=== PATIENT | female | born 1935 | race African-American/Black ===

== ENCOUNTER 2018-02-01 09:47 | Emergency (ER) | payer MEDICARE, BC ==
[~2018-02-01] VITALS: Ht 162.6 cm; Wt 92.0 kg
[~2018-02-01 09:47] MED LIST: DOXA2TAB2 PO; HYDR12.529 PO; LETR2.5T6 PO; NEBI5TAB3 PO; NISO17TA3 PO; WARF1TAB85 PO
[2018-02-01] MEDS ORDERED: ACETAMINOPHEN 325MG TABLET PO ONE (10:45)
[2018-02-01 12:00] VITALS: BP 140/80
== END 2018-02-01 12:16 | disposition home or self-care (01) ==
LOC: ER 10:51
DX: S00.83XA Contusion of other part of head, initial encounter (principal); S70.01XA Contusion of right hip, initial encounter; I25.10 Atherosclerotic heart disease of native coronary artery without angina pectoris; M85.80 Other specified disorders of bone density and structure, unspecified site; I10 Essential (primary) hypertension; Z98.890 Other specified postprocedural states; Z96.659 Presence of unspecified artificial knee joint; Z88.0 Allergy status to penicillin; Z79.01 Long term (current) use of anticoagulants; Z88.8 Allergy status to other drugs, medicaments and biological substances; W01.0XXA Fall on same level from slipping, tripping and stumbling without subsequent striking against object, initial encounter; Y93.89 Activity, other specified; Y92.018 Other place in single-family (private) house as the place of occurrence of the external cause
CPT/HCPCS: 70450; 72170; 99284

== ENCOUNTER 2018-03-01 18:22 | Emergency (ER) | payer MEDICARE, BC ==
[~2018-03-01] VITALS: Ht 162.6 cm; Wt 65.0 kg
[2018-03-01 19:24] LABS: BASOPHILS % 0.4 % (0.0-2.0); EOSINOPHILS % 0.8 % (0.0-5.0); HEMATOCRIT. 32.7 % (36.0-48.0); HEMOGLOBIN. 11.1 g/dL (12.0-16.0); LYMPHOCYTES % 14.5 % (20.0-50.0); MEAN CORPUSCULAR HEMOGLOBIN 29.1 pg (28.0-32.0); MEAN CORPUSCULAR VOLUME 85.7 fL (81.0-99.0); MEAN PLATELET VOLUME 8.5 fl (7.4-10.4); MONOCYTES % 13.7 % (2.0-8.0); NEUTROPHILS % 70.6 % (40.0-76.0); PLATELET 198 x1000/uL (130-400); RED BLOOD CELL COUNT 3.81 mill/uL (4.2-5.4); RED CELL DISTRIBUTION WIDTH 15.1 % (11.6-14.6)
[2018-03-01 19:29] LABS: CHLORIDE 107 mEq/L (98-107)
[2018-03-01 19:30] LABS: INR 1.6; PROTHROMBIN TIME 16.3 sec (9.4-11.6)
[2018-03-01 21:00] VITALS: BP 123/55
[2018-03-01] MEDS ORDERED: KETOROLAC 60MG/2ML VIAL IM ONE (21:15)
== END 2018-03-01 22:25 | disposition home or self-care (01) ==
LOC: ER 18:37
DX: R53.1 Weakness (principal); M16.0 Bilateral primary osteoarthritis of hip; I25.10 Atherosclerotic heart disease of native coronary artery without angina pectoris; I10 Essential (primary) hypertension; Z79.01 Long term (current) use of anticoagulants; Z88.0 Allergy status to penicillin; Z88.8 Allergy status to other drugs, medicaments and biological substances; Z91.040 Latex allergy status; Z96.659 Presence of unspecified artificial knee joint
CPT/HCPCS: 36415; 73521; 80053; 85025; 85610; 96372; 99285; J1885

== ENCOUNTER 2025-05-09 22:00 | Inpatient (IN) | payer MEDICARE, MEDICAID ==
[~2025-05-09] VITALS: Ht 170.2 cm; Wt 88.5 kg
[2025-05-09 22:00] VITALS: BP_SYST 120; BP_SYST 125; BP_DIAS 47; BP_DIAS 53; PULSE 51; RESP 18; RESP 20; TEMP 36.7; O2SAT 98
[~2025-05-09 22:00] MED LIST changes: +CADE40GE2 TP; -DOXA2TAB2 PO; +EZET10TA81 MT; +GENT30OI2 TP; -HYDR12.529 PO; +HYDR25TA MT; +HYDROCHLOROTHIAZIDE PO; -LETR2.5T6 PO; +MULT-1116 MT; -NEBI5TAB3 PO; +NIFE-33 MT; -NISO17TA3 PO; +TRIAMTERENE PO; -WARF1TAB85 PO; +[UNRECOGNIZED DRUG - CODE] TP; +[UNRECOGNIZED DRUG - CODE] TP; +triamterene
[2025-05-09] MEDS ORDERED: DEXTROSE 50% WATER 50ML SYRINGE IV PRN (22:45)
[2025-05-09] MEDS ORDERED: GUAIFENESIN 200MG/10ML SUGAR FREE UDC PO PRN (22:45)
[2025-05-09] MEDS ORDERED: ONDANSETRON HCL 4MG/2ML INJ IV PRN (22:45)
[2025-05-09] MEDS ORDERED: MAGNESIUM/ALUMINUM HYDROXIDE/SIMETHICONE 30ML UDC PO PRN (22:45)
[2025-05-09] MEDS ORDERED: ATROPINE SULFATE 1MG/10ML SYR IV PRN (23:00)
[2025-05-09] MEDS ORDERED: HYDRALAZINE 10 MG in SODIUM CHLORIDE 0.9% 50 ML IV PRN (23:00)
[2025-05-10] MEDS: PHENYTOIN SODIUM EXTENDED 100MG CAPSULE PO SCH (06:33)
[2025-05-10 08:00] VITALS: BP 142/58; PULSE 46; RESP 18; TEMP 36.1; O2SAT 98
[2025-05-10] MEDS: LEVETIRACETAM 500MG TABLET PO SCH (09:46)
[2025-05-10] MEDS: MAGNESIUM OXIDE 400MG TABLET PO SCH (09:46)
[2025-05-10] MEDS: FAMOTIDINE 20MG TABLET PO SCH (21:01)
[2025-05-10 21:53] LABS: BASOPHILS % 0.5 % (0.0-2.0); EOSINOPHILS % 1.3 % (0.0-5.0); HEMATOCRIT. 38.3 % (36.0-48.0); HEMOGLOBIN. 12.5 g/dL (12.0-16.0); LYMPHOCYTES % 17.0 % (20.0-50.0); MEAN PLATELET VOLUME 8.0 fl (7.4-10.4); MONOCYTES % 9.9 % (2.0-8.0); NEUTROPHILS % 71.3 % (40.0-76.0); PLATELET 187 x1000/uL (130-400); RED BLOOD CELL COUNT 4.35 mill/uL (4.2-5.4); RED CELL DISTRIBUTION WIDTH 15.4 % (11.6-14.6)
[2025-05-10 22:22] LABS: CREATININE 0.9 mg/dL (0.6-1.0); UREA NITROGEN BLOOD 15 mg/dL (9-23)
[2025-05-10 22:24] LABS: ASPARTATE AMINOTRANSFERASE 37 IU/L (<34)
[2025-05-10 22:25] LABS: BILIRUBIN TOTAL 0.4 mg/dL (0.1-1.0); PROTEIN TOTAL 6.5 g/dL (6.0-8.3)
[2025-05-11 12:00] VITALS: BP 130/53; PULSE 52; RESP 19; TEMP 36.2; O2SAT 98
[2025-05-12 05:47] LABS: CREATININE 0.7 mg/dL (0.6-1.0); UREA NITROGEN BLOOD 16 mg/dL (9-23)
[2025-05-12 05:49] LABS: ASPARTATE AMINOTRANSFERASE 35 IU/L (<34)
[2025-05-12 05:50] LABS: BILIRUBIN TOTAL 0.4 mg/dL (0.1-1.0); PROTEIN TOTAL 6.2 g/dL (6.0-8.3)
[2025-05-12 05:51] LABS: BASOPHILS % 0.5 % (0.0-2.0); EOSINOPHILS % 1.3 % (0.0-5.0); HEMATOCRIT. 36.1 % (36.0-48.0); HEMOGLOBIN. 11.9 g/dL (12.0-16.0); LYMPHOCYTES % 18.0 % (20.0-50.0); MEAN PLATELET VOLUME 7.8 fl (7.4-10.4); MONOCYTES % 11.0 % (2.0-8.0); NEUTROPHILS % 69.2 % (40.0-76.0); PLATELET 198 x1000/uL (130-400); RED BLOOD CELL COUNT 4.20 mill/uL (4.2-5.4); RED CELL DISTRIBUTION WIDTH 15.4 % (11.6-14.6)
[2025-05-12 05:55] LABS: FOLIC ACID (FOLATE) SERUM 11.53 ng/mL (>5.38); VITAMIN B12 SERUM 982 pg/mL (211-911)
[2025-05-12 08:00] VITALS: BP 120/54; PULSE 60; RESP 18; TEMP 35.9; O2SAT 98
[2025-05-13 08:00] VITALS: BP 140/62; PULSE 55; RESP 19; TEMP 36.7; O2SAT 99
[2025-05-13 08:17] LABS: CLARITY URINE CLEAR (CLEAR); COLOR URINE YELLOW (YELLOW); GLUCOSE URINE NEGATIVE (NEGATIVE); KETONES URINE NEGATIVE (NEGATIVE); LEUKOCYTE ESTERASE URINE NEGATIVE (NEGATIVE); NITRITE URINE NEGATIVE (NEGATIVE); OCCULT BLOOD URINE NEGATIVE (NEGATIVE); PH URINE 6.0 (4.5-8.0); PROTEIN URINE NEGATIVE (NEGATIVE); SPECIFIC GRAVITY URINE 1.014 (1.005-1.030); UROBILINOGEN URINE 0.2 E.U./dL (0.2-1.0)
[2025-05-13] MEDS: ASCORBIC ACID 500 MG TABLET PO SCH (08:20)
[2025-05-13] MEDS: FERROUS SULFATE 325MG TABLET PO SCH (08:20)
[2025-05-13 20:00] VITALS: BP 161/54; PULSE 61; RESP 18; TEMP 36.6; O2SAT 100
[2025-05-13] MEDS: CLONIDINE 0.1MG TABLET PO PRN (22:01)
[2025-05-13] MEDS ORDERED: HYDRALAZINE HCL 25MG TABLET PO SCH (22:15)
[2025-05-13] MEDS: HYDRALAZINE HCL 25MG TABLET PO SCH (22:45)
[2025-05-13 23:17] VITALS: BP 114/57; PULSE 70
[2025-05-14 08:00] VITALS: BP 137/70; PULSE 83; RESP 17; TEMP 36.7; O2SAT 98
[2025-05-14] MEDS ORDERED: HYDRALAZINE HCL 25MG TABLET PO SCH (09:00)
[2025-05-14 20:00] VITALS: BP 148/62; PULSE 69; RESP 19; TEMP 35.9; O2SAT 100
[2025-05-14] MEDS: DOCUSATE SODIUM 100MG CAPSULE PO PRN (21:00)
[2025-05-14] MEDS: TRIAMCINOLONE ACETONIDE 0.5% CREAM 15GM TOP SCH (21:33)
[2025-05-15 09:35] VITALS: BP 142/50; PULSE 57; RESP 18; TEMP 36.3; O2SAT 97
[2025-05-15 20:00] VITALS: BP 132/70; PULSE 62; RESP 18; TEMP 35.8; O2SAT 100
[2025-05-16 08:00] VITALS: BP 125/66; PULSE 96; RESP 20; TEMP 36.5; O2SAT 97
[2025-05-16] MEDS: ACETAMINOPHEN 325MG TABLET PO PRN (09:30)
[2025-05-16] MEDS: MAGNESIUM/ALUMINUM HYDROXIDE/SIMETHICONE 30ML UDC PO NR (16:01)
[2025-05-16] MEDS: PANTOPRAZOLE 40MG DR TABLET PO SCH (16:02)
[2025-05-16] MEDS: FAMOTIDINE 20MG TABLET PO NR (16:02)
[2025-05-16 18:47] LABS: TROPONIN I HIGH SENSITIVITY 10 ng/L (3.0-34)
[2025-05-16 20:00] VITALS: BP 135/49; PULSE 61; RESP 17; TEMP 36.4; O2SAT 96
[2025-05-17 08:00] VITALS: BP 131/67; PULSE 69; RESP 18; TEMP 36; O2SAT 98
[2025-05-17 09:01] LABS: UREA NITROGEN BLOOD 27 mg/dL (9-23)
[2025-05-17 09:03] LABS: PHOSPHORUS 4.5 mg/dL (2.5-4.9)
[2025-05-17 09:05] LABS: CREATININE 2.2 mg/dL (0.6-1.0)
[2025-05-17 09:10] LABS: BASOPHILS % 0.5 % (0.0-2.0); EOSINOPHILS % 0.5 % (0.0-5.0); HEMATOCRIT. 40.3 % (36.0-48.0); HEMOGLOBIN. 13.0 g/dL (12.0-16.0); LYMPHOCYTES % 13.6 % (20.0-50.0); MEAN PLATELET VOLUME 8.8 fl (7.4-10.4); MONOCYTES % 11.3 % (2.0-8.0); NEUTROPHILS % 74.1 % (40.0-76.0); PLATELET 105 x1000/uL (130-400); RED BLOOD CELL COUNT 4.53 mill/uL (4.2-5.4); RED CELL DISTRIBUTION WIDTH 16.1 % (11.6-14.6)
[2025-05-17] MEDS: SODIUM POLYSTYRENE SULFONATE 15 G/60 ML BOT PO SCH (09:45)
[2025-05-17] MEDS: SODIUM POLYSTYRENE SULFONATE 15 G/60 ML BOT PO NR (14:30)
[2025-05-17] MEDS ORDERED: SODIUM ZIRCONIUM CYCLOSILICATE 10GM/PACKET PO ONE (14:30)
[2025-05-17] MEDS: SODIUM CHLORIDE 0.9% 1,000 ML IV SCH (14:30)
[2025-05-17 15:21] LABS: CREATININE 2.4 mg/dL (0.6-1.0); UREA NITROGEN BLOOD 38.0 mg/dL (9-23)
[2025-05-17 20:00] VITALS: BP 129/74; PULSE 79; RESP 19; TEMP 36.9; O2SAT 100
[2025-05-17 20:49] LABS: CREATININE 2.2 mg/dL (0.6-1.0); UREA NITROGEN BLOOD 42.0 mg/dL (9-23)
[2025-05-17] MEDS: DOCUSATE SODIUM 100MG CAPSULE PO SCH (21:00)
[2025-05-17] MEDS: SENNOSIDES 8.6MG TABLET PO SCH (22:46)
[2025-05-18 06:55] LABS: BASOPHILS % 0.6 % (0.0-2.0); EOSINOPHILS % 0.3 % (0.0-5.0); HEMATOCRIT. 40.5 % (36.0-48.0); HEMOGLOBIN. 13.1 g/dL (12.0-16.0); LYMPHOCYTES % 15.2 % (20.0-50.0); MEAN PLATELET VOLUME 7.9 fl (7.4-10.4); MONOCYTES % 11.0 % (2.0-8.0); NEUTROPHILS % 72.9 % (40.0-76.0); PLATELET 102 x1000/uL (130-400); RED BLOOD CELL COUNT 4.59 mill/uL (4.2-5.4); RED CELL DISTRIBUTION WIDTH 16.6 % (11.6-14.6)
[2025-05-18 07:20] LABS: CREATININE 2.1 mg/dL (0.6-1.0); UREA NITROGEN BLOOD 43.0 mg/dL (9-23)
[2025-05-18 08:00] VITALS: BP 138/65; PULSE 79; RESP 17; TEMP 36.6; O2SAT 99
[2025-05-18] MEDS ORDERED: SODIUM POLYSTYRENE SULFONATE 15 G/60 ML BOT PO ONE (09:15)
[2025-05-18] MEDS: SODIUM ZIRCONIUM CYCLOSILICATE 10GM/PACKET PO SCH (09:15)
[2025-05-18] MEDS: LACTULOSE 20G/30ML UDC PO PRN (11:43)
[2025-05-18 20:00] VITALS: BP 143/68; PULSE 60; RESP 16; TEMP 36.4; O2SAT 97
[2025-05-19] MEDS: MINERAL OIL ENEMA 133ML PR SCH (05:07)
[2025-05-19 08:00] VITALS: BP 115/70; PULSE 76; RESP 18; TEMP 35.7; O2SAT 98
[2025-05-19 11:18] LABS: HEMATOCRIT. 33.4 % (36.0-48.0); HEMOGLOBIN. 10.9 g/dL (12.0-16.0); MEAN PLATELET VOLUME 8.0 fl (7.4-10.4); PLATELET 95 x1000/uL (130-400); RED BLOOD CELL COUNT 3.88 mill/uL (4.2-5.4); RED CELL DISTRIBUTION WIDTH 15.9 % (11.6-14.6)
[2025-05-19 11:36] LABS: CREATININE 1.3 mg/dL (0.6-1.0); UREA NITROGEN BLOOD 41.0 mg/dL (9-23)
[2025-05-19] MEDS: MULTIVITAMINS,THER W-MINERALS TABLET PO SCH (13:18)
[2025-05-19 20:00] VITALS: BP 153/52; PULSE 75; RESP 18; TEMP 37; O2SAT 95
[2025-05-19 20:25] LABS: EOSINOPHILS % MANUAL 2.0 % (0.0-5.0); LYMPHOCYTES % MANUAL 19.0 % (20.0-60.0); MONOCYTES % MANUAL 13.0 % (2.0-8.0); NEUTROPHILS % MANUAL 66.0 % (45.0-75.0); PLATELET ESTIMATE DECREASED
[2025-05-20 06:57] LABS: HEMATOCRIT. 31.4 % (36.0-48.0); HEMOGLOBIN. 10.6 g/dL (12.0-16.0); MEAN PLATELET VOLUME 8.2 fl (7.4-10.4); PLATELET 96 x1000/uL (130-400); RED BLOOD CELL COUNT 3.65 mill/uL (4.2-5.4); RED CELL DISTRIBUTION WIDTH 15.7 % (11.6-14.6)
[2025-05-20 07:01] LABS: CREATININE 1.0 mg/dL (0.6-1.0); UREA NITROGEN BLOOD 35 mg/dL (9-23)
[2025-05-20 08:00] VITALS: BP 129/80; PULSE 89; RESP 17; TEMP 36.7; O2SAT 98
[2025-05-20 13:06] LABS: BAND% 4.0 % (1.0-6.0); EOSINOPHILS % MANUAL 1.0 % (0.0-5.0); LYMPHOCYTES % MANUAL 25.0 % (20.0-60.0); MONOCYTES % MANUAL 14.0 % (2.0-8.0); NEUTROPHILS % MANUAL 56.0 % (45.0-75.0)
[2025-05-20 13:07] LABS: PLATELET ESTIMATE DECREASED
[2025-05-20 20:00] VITALS: BP 106/76; PULSE 80; RESP 19; TEMP 36.7; O2SAT 98
[2025-05-21 07:08] LABS: HEMATOCRIT. 32.0 % (36.0-48.0); HEMOGLOBIN. 10.6 g/dL (12.0-16.0); MEAN PLATELET VOLUME 7.9 fl (7.4-10.4); PLATELET 109 x1000/uL (130-400); RED BLOOD CELL COUNT 3.71 mill/uL (4.2-5.4); RED CELL DISTRIBUTION WIDTH 15.9 % (11.6-14.6)
[2025-05-21 07:24] LABS: CREATININE 0.8 mg/dL (0.6-1.0); UREA NITROGEN BLOOD 23 mg/dL (9-23)
[2025-05-21 07:56] VITALS: BP 138/82; PULSE 84; RESP 18; TEMP 36.6; O2SAT 99
[2025-05-21 16:56] LABS: EOSINOPHILS % MANUAL 3.0 % (0.0-5.0); LYMPHOCYTES % MANUAL 28.0 % (20.0-60.0); MONOCYTES % MANUAL 5.0 % (2.0-8.0); NEUTROPHILS % MANUAL 64.0 % (45.0-75.0); PLATELET ESTIMATE DECREASED
[2025-05-21 21:00] VITALS: BP 158/45; PULSE 57; RESP 20; TEMP 36.1; O2SAT 97
[2025-05-22 08:00] VITALS: BP 118/41; PULSE 59; RESP 18; TEMP 36.3; O2SAT 99
[2025-05-22 20:00] VITALS: BP 130/76; PULSE 86; RESP 20; TEMP 36.7; O2SAT 98
[2025-05-23 07:11] LABS: BASOPHILS % 1.0 % (0.0-2.0); EOSINOPHILS % 2.5 % (0.0-5.0); HEMATOCRIT. 33.3 % (36.0-48.0); HEMOGLOBIN. 10.9 g/dL (12.0-16.0); LYMPHOCYTES % 25.6 % (20.0-50.0); MEAN PLATELET VOLUME 7.8 fl (7.4-10.4); MONOCYTES % 14.8 % (2.0-8.0); NEUTROPHILS % 56.1 % (40.0-76.0); PLATELET 135 x1000/uL (130-400); RED BLOOD CELL COUNT 3.81 mill/uL (4.2-5.4); RED CELL DISTRIBUTION WIDTH 16.1 % (11.6-14.6)
[2025-05-23 08:00] VITALS: BP 137/60; PULSE 76; RESP 20; TEMP 36.1; O2SAT 100
[2025-05-23 08:07] LABS: CREATININE 0.7 mg/dL (0.6-1.0); UREA NITROGEN BLOOD 16 mg/dL (9-23)
[2025-05-23 20:00] VITALS: BP 125/56; PULSE 81; RESP 18; TEMP 36.3; O2SAT 99
[2025-05-24 08:00] VITALS: BP 110/42; PULSE 82; RESP 18; TEMP 35.8; O2SAT 97
[2025-05-24 21:00] VITALS: BP 140/59; PULSE 65; RESP 20; TEMP 36.5; O2SAT 100
[2025-05-25 08:00] VITALS: BP 139/54; PULSE 69; RESP 18; TEMP 36.8; O2SAT 99
[2025-05-25 20:00] VITALS: BP 111/51; PULSE 63; RESP 17; TEMP 36.4; O2SAT 99
[2025-05-26 08:00] VITALS: BP 109/58; PULSE 80; RESP 18; TEMP 36.4; O2SAT 98
[2025-05-26 20:00] VITALS: BP 115/56; PULSE 75; RESP 18; TEMP 36.4; O2SAT 99
[2025-05-26 23:30] VITALS: BP 115/56; PULSE 76; RESP 18; TEMP 36.4; O2SAT 99
[2025-05-27 08:00] VITALS: BP 122/51; PULSE 69; RESP 20; TEMP 36.6; O2SAT 100
[2025-05-27 13:33] VITALS: BP 122/51; PULSE 69; TEMP 97.9; O2SAT 100
== END 2025-05-27 16:08 | disposition home health service (06) | DRG 52 ==
PROVIDERS: ADMIT Physical Medicine & Rehabilitation Spinal Cord Injury Medicine; ATTEND Internal Medicine
DX: G82.50 Quadriplegia, unspecified (principal); G92.8 Other toxic encephalopathy; J96.00 Acute respiratory failure, unspecified whether with hypoxia or hypercapnia; I16.1 Hypertensive emergency; I82.411 Acute embolism and thrombosis of right femoral vein; M62.82 Rhabdomyolysis; N17.9 Acute kidney failure, unspecified; F32.A Depression, unspecified; G40.909 Epilepsy, unspecified, not intractable, without status epilepticus; I10 Essential (primary) hypertension; I87.2 Venous insufficiency (chronic) (peripheral); I87.8 Other specified disorders of veins; L98.419 Non-pressure chronic ulcer of buttock with unspecified severity; E78.00 Pure hypercholesterolemia, unspecified; M75.02 Adhesive capsulitis of left shoulder; E87.5 Hyperkalemia; K56.41 Fecal impaction; L30.9 Dermatitis, unspecified; N28.89 Other specified disorders of kidney and ureter; D64.9 Anemia, unspecified; D69.6 Thrombocytopenia, unspecified; E66.811 Obesity, class 1; I95.9 Hypotension, unspecified; R00.1 Bradycardia, unspecified; R26.9 Unspecified abnormalities of gait and mobility; R53.81 Other malaise; R74.8 Abnormal levels of other serum enzymes; Z68.30 Body mass index [BMI] 30.0-30.9, adult; Z85.3 Personal history of malignant neoplasm of breast; Z86.718 Personal history of other venous thrombosis and embolism; Z88.0 Allergy status to penicillin; Z91.81 History of falling; Z95.828 Presence of other vascular implants and grafts; Z82.49 Family history of ischemic heart disease and other diseases of the circulatory system; F01.50 Vascular dementia, unspecified severity, without behavioral disturbance, psychotic disturbance, mood disturbance, and anxiety; R13.10 Dysphagia, unspecified; R29.810 Facial weakness
CPT/HCPCS: 36415; 74018; 76770; 80048; 80053; 81003; 82140; 82306; 82607; 82728; 82746; 83036; 83540; 83550; 83735; 84100; 84132; 84134; 84443; 84484; 85025; 92523; 92610; 93005; 93971; 97110; 97112; 97116; 97140; 97150; 97162; 97166; 97530; 97535; 97542; A4606; A6449; J7030